=== PATIENT | male | born 1945 | race Caucasian/White ===

== ENCOUNTER 2018-02-22 13:37 | Inpatient (IN) | payer MEDICARE ==
[2018-02-22] VITALS (8 sets, daily range): BP systolic 102–136; BP diastolic 67–78
[~2018-02-22] VITALS: Ht 172.7 cm; Wt 85.0 kg
[~2018-02-22 13:37] MED LIST: ASPIRIN81 M2 PO; HYDROCODON-ACE1 EAC1 PO; LEVOTHYROXIN0.088 MG PO; LEVOTHYROXINE0.05 MG PO; LISINOPRIL20 MG PO; NIACIN 500 MG500 M1 PO; NORVASC10 MG PO; PRAVACHOL20 MG PO; PRINZIDE 20-251 EACH PO; SIMVASTATIN40 MG PO
[2018-02-22] MEDS ORDERED: ALLOPURINOL 10100 M1 PO (13:45)
[2018-02-22] MEDS ORDERED: ZOCOR20 MG PO (13:45)
[2018-02-22 13:53] LABS: ABSOLUTE EOSINOPHILS 0.1 thou/uL (0.0-0.7); ABSOLUTE LYMPHOCYTES 2.5 thou/uL (0.8-5.3); ABSOLUTE MONOCYTES 0.4 thou/uL (0.0-1.2); ABSOLUTE NEUTROPHILS 3.9 thou/uL (1.6-8.1); BASOPHILS 0.1 %; EOSINOPHILS 1.8 %; HEMATOCRIT 45.7 % (42.0-52.0); HEMOGLOBIN 15.2 gm/dL (14.0-18.0); LYMPHOCYTES 35.8 %; MCH 30.3 pg (26.0-34.0); MCHC 33.2 g/dL (28.0-37.0); MCV 91.3 fL (80.0-100.0); MONOCYTES 5.8 %; MPV 7.3 fl. (7.2-11.1); NUCLEATED RBCS 0 /100WBC; PLATELET COUNT* 215 thou/uL (150-400); POLYS 56.5 %; RDW-CV 14.2 % (10.5-14.5)
[2018-02-22 14:04] LABS: APTT 36.5 Seconds (25.0-31.3); PROTIME 10.2 Seconds (9.20-11.50)
[2018-02-22 14:06] LABS: ANION GAP 6 mmol/L (7-16); BUN 23 mg/dL (7-18); CALCIUM 8.8 mg/dL (8.5-10.1); CHLORIDE 101 mmol/L (98-107); CO2 28 mmol/L (21-32); CREATININE 1.2 mg/dL (0.6-1.3); GLUCOSE 158 mg/dL (70-99); POTASSIUM 3.6 mmol/L (3.5-5.1); SODIUM 135 mmol/L (136-145)
[2018-02-22 14:22] LABS: ALBUMIN 4.3 g/dL (3.4-5.0); ALKALINE PHOSPHATASE 74 U/L (46-116); CK-MB MASS 0.5 ng/mL (<0.5-3.6); LIPASE 117 U/L (73-393); MAGNESIUM 2.1 mg/dL (1.8-2.4); NT-PRO BRAIN NAT PEPTIDE 29 pg/mL (<300); SGOT 14 U/L (15-37); SGPT 22 U/L (30-65); TOTAL BILIRUBIN 0.4 mg/dL (<0.1-1.0); TOTAL PROTEIN 7.8 g/dL (6.4-8.2); TROPONIN-I LEVEL <0.06 ng/mL (<0.06)
--- NOTE | 2018-02-22 16:25 | EKG ---
[place] [address] ELECTROCARDIOGRAM REPORT Name: LLUVIA RUEDA Room: [place] [address] ADM IN [facility]#: [id number] Admission: 02/22/18 Attend Phys: Yony Zacarias MD, F Discharge: Date of : 47 Report #: [id number] THIS REPORT FOR: //name// [facility] ED Test Date: 2018-02-22 Test Time: 13:42:08 Pat Name: LLUVIA RUEDA Department: Room: Gender: Emergency Manager: : 1945 Requested By: Bon Bates Order Number: [id number] MD: Yony Zacarias Measurements Intervals [place] Rate: 77 P: -5 NE: 139 QRS: 20 QRSD: 101 T: 55 QT: 383 QTc: 434 Interpretive Statements Sinus rhythm Probable left atrial enlargement Minimal ST depression, lateral leads Compared to ECG 05/26/2014 14:59:02 ST (T wave) deviation now present Electronically Signed On 02-22-2018 16:24:53 PATTERN STORAGE CLERK by Yony Zacarias [email or web address] <ELECTRONICALLY SIGNED> By: Yony Zacarias MD, [facility] 02/22/18 1624 1342 1342 Yony Zacarias MD, [facility] /EPI
--- NOTE | 2018-02-22 17:52 | CARD ---
[facility] [address] [place] [address] CARDIAC CATH REPORT Name: LLUVIA RUEDA Room: [address] IN .R.#: [id number] Admission: 02/22/18 Attend Phys: Yony Zacarias MD, F Discharge: Date of : 47 Report #: [id number] THIS REPORT FOR: //name// APPROVED REPORT Study performed: 02/22/2018 14:09:09 Patient Details Patient Status: In-Patient Room #: 201 The patient is a 72 year-old male Event Personnel Yony Zacarias Project Consultant, Ashely Cristina RN Cone Sewer, Kyle Burgess (R) Monitor, Stephanie WalkerIS Scrub Procedures Performed Left Heart Cath w/or w/o Coronaries Indication Abnormal ECG, Unstable angina Risk Factors Arterial Hypertension, Hypercholesterolemia Admission/Lab Medications/Medications given during procedure Heparin Unfract. Procedure Narrative The patient was brought electively to the Cardiac Catheterization Laboratory and was prepped and draped in a sterile manner. The right wrist was infiltrated with 1% Lidocaine subcutaneous anesthesia. A Slender Glidesheath sheath was inserted into the right radial artery. Coronary angiography was performed using coronary diagnostic catheters. The right coronary system was accessed and visualized with a Diagnostic JR4 catheter. The left coronary system was accessed and visualized with a Diagnostic JL4 catheter. The left ventricle was accessed and visualized with a Diagnostic Angled Pigtail catheter. Left ventricular/Aortic Valve gradient assessed via catheter pullback. Left ventriculogram was performed in MCKEON projection. Closure device was deployed with a 6 Fr Vasc-Band Reg 24cm. The patient tolerated the procedure well and there were no complications associated with the procedure. There was no hematoma[place] [address] CARDIAC CATH REPORT Name: MOHITLLUVIA DAYANARA Room: [address] IN [facility]#: [id number] Admission: 02/22/18 Attend Phys: Yony Zacarias MD, F Discharge: Date of : 47 Report #: [id number] Sedation start time: 14:56 Case end Time: 15:21 Fentanyl 25 mcg Versed 2 mg Fluoro Time: 2.3 minutes Dose: DAP 81710 cGycm2 597 mGy Contrast Type and Amount: Visipaque 45 ml Coronary Angiography The patient's coronary anatomy is right dominant. Diagnostic Cath Left Main 90% proximal stenosis LAD 60% proximal stenosis Circumflex 50% mid stenosis Right Coronary 70% ostial stenosis, 40% mid stenosis Left Ventriculography The left ventricle is normal in size with normal contractility. The left ventricular ejection fraction is estimated to be 60-65%. Left ventricular wall motion abnormalities are not present. There is no mitral insufficiency. Hemodynamics The aortic pressure is 101/64 mmHg with a mean of 81 mmHg. The left ventricular pressure is 109/12 mmHg with a mean of mmHg. The left ventricular end diastolic pressure is 12 mmHg. There was no gradient across the aortic valve upon pullback. Pullback from the left ventricle to the aorta revealed no gradient across the aortic valve. Conclusion 1. 90% left main stenosis and 70% stenosis of the rca ostium 2. normal LV function Recommendations CABG <ELECTRONICALLY SIGNED> By: Yony Zacarias MD, FACC 02/22/18 175 50 1751Djayce Zacarias MD, FACC /INF
--- NOTE | 2018-02-22 18:20 | NUR ---
ADMISSION ASSESSMENT COMPLETED REFER TO COMPUTER CHARTING. SHEET METAL SMITH TRACKING SR. PATIENT RESTING IN BED REPORTING NO PAIN, NAUSEA OR SHORTNESS OF BREATH. BED IN LOW AND LOCKED POSITION. CALL LIGHT WITHIN REACH. FAMILY AT BEDSIDE. IV FLUIDS INFUSING. RADSTAT TO RIGHT WRIST. CALL LIGHT WITHIN REACH. WILL CONTINUE TO MONITOR.
[2018-02-23] VITALS: BP 94/57
--- NOTE | 2018-02-23 02:25 | NUR ---
ASSUMED CARE OF PATIENT AT 1900 VSS, AFEBRILE. READSTAT REMOVED AT APPROXIMATELY 2029. NO FURTHER BRUISING OR HEMATOMA NOTED. DENIES PAIN, SOA OR N/V. EDUCATION GIVEN REGARDING PLANNED BIPASS. PATIENT TO GO TO [facility] TOMORROW FOR SURGERY ON THURSDAY. AT BEDSIDE. NO OTHER CONCERNS AT THIS TIME. WILL CONTINUE TO MONITOR.
[2018-02-23 04:00] VITALS: BP 109/69
[2018-02-23 05:52] LABS: CHOLESTEROL 137 mg/dL (<200); HDL CHOLESTEROL 25 mg/dL (>40); TC:HDL 5.5 Ratio (Not establshd); TRIGLYCERIDE 435 mg/dL (<150); TROPONIN-I LEVEL 0.08 ng/mL (<0.06); VLDL 87 mg/dL (<40)
[2018-02-23 05:55] LABS: SERUM ASSESSMENT Moderate Lipemia
[2018-02-23 08:00] VITALS: BP 111/70
--- NOTE | 2018-02-23 09:42 | NUR ---
ASSUMED CARE OF PT AT 0730. PT SITTING UP IN THE CHAIR WAITING FOR BREAKFAST. PT AT BEDSIDE AND UPDATED ON CURRENT PLAN OF CARE. PT A&0X4, COMPLAINS OF PAIN TO BACK- STATES HE TAKES HYDROCODONE AT HOME. REDNESS RASH NOTED TO PT BACK. PT STATES IT IS FROM TAKING CODEINE. DR LOUIE NOTIFIED. ORDERS RECEIVED FOR BENADRYL AND TO RESTART HYDROCODONE. REFER TO EMAR. PT TRACING SR ON THE SAP SENIOR DEVELOPER. PT PLAN IS TO TRANSFER TO [facility] TODAY AFTER ECHO AND US CAROTIDS. PT TO HAVE TRIPLE BYPASS ON THURSDAY. RIGHT WRIST ACCESS YESTERDAY- C/D/I WITH NO HEMATOMA NOTED. PT ON RA SAT UPPER 90'S. DENIES ANY SHORTNESS OF BREATH. PT UP AD ARGELIA IN ROOM. AM ASSESSMENT CHARTED. MEDICATIONS PER JUN. PT REPOSITIONS SELF. HOURLY ROUNDING OBSERVED. BED IN LOW POSITION. CALL LIGHT WITHIN REACH. WILL CONTINUE PLAN OF CARE.
--- NOTE | 2018-02-23 10:20 | NUR ---
Consult received for Pt to transfer to [facility] for triple bypass surgery on . CM spoke with Montse with the transfer center, she has already received info from the [facility] Production Utility Worker, they are waiting bed availablity later today. Pt out of the room at testing, Pt to have an Echo and carotid US prior to dc. AMADO initiated the EMTALA form and ambulance form, updated nurse. Montse to contact CM once bed becomes available. Following.
[2018-02-23 11:58] VITALS: BP 108/61
--- NOTE | 2018-02-23 14:09 | 2DMMODE ---
[place] [address] 2 D/M-MODE ECHOCARDIOGRAM Name: MOHITLLUVIA DAYANARA Room: [address] IN [facility]#: [id number] Admission: 02/22/18 Attend Phys: Yony Zacarias MD Discharge: Date of : 47 Date of Service: 02/23/18 1409 Report #: [id number] THIS REPORT FOR: //name// APPROVED REPORT Study performed: 02/23/2018 10:59:23 EXAM: Comprehensive 2D, Doppler, and color-flow Echocardiogram Patient Location: In-Patient Room #: 222 Status: routine BSA: 2.02 HR: 56 bpm BP: 111/70 mmHg Rhythm: NSR Other Information Study Quality: Good Indications Abnormal ECG 2D Dimensions IVSd: 11.72 (7-11mm) LVOT Diam: 19.54 (18-24mm) LVDd: 38.16 mm PWd: 10.37 (7-11mm) Ascending Ao: 37.84 (22-36mm) LVDs: 20.72 (25-40mm) Aortic Root: 35.96 mm Volumes Left Atrial Volume (Systole) LA ESV Index: 19.60 mL/m2 Aortic Valve AoV Peak Jeremy.: 1.48 m/s AO Peak Gr.: 8.75 mmHg LVOT Max P.82 mmHg AO Mean Gr.: 4.80 mmHg LVOT Mean P.09 mmHg LVOT Max V: 1.31 m/s AO V2 VTI: 26.47 cm LVOT Mean V: 0.79 m/s KRISTA (VTI): 3.06 cm2 LVOT V1 VTI: 27.01 cm Mitral Valve E/A Ratio: 0.85 MV Decel. Time: 268.41 ms MV E Max Jeremy.: 0.62 m/[place] [address] 2 D/M-MODE ECHOCARDIOGRAM Name: MOHITLLUVIASHOLA NICHOLE Room: [address] IN .R.#: [id number] Admission: 02/22/18 Attend Phys: Yony Zacarias MD Discharge: Date of : 47 Date of Service: 02/23/18 1409 Report #: [id number] MV PHT: 77.84 ms MVA (PHT): 2.83 cm2 TDI E/Lateral E': 10.33 E/Medial E': 8.86 Medial E' Jeremy.: 0.07 m/s Lateral E' Jeremy.: 0.06 m/s Pulmonary Valve PV Peak Jeremy.: 0.83 m/s PV Peak Gr.: 2.76 mmHg Tricuspid Valve RAP Estimate: 5.00 mmHg TR Peak Gr.: 23.66 mmHg RVSP: 28.00 mmHg PA Pressure: 28.00 mmHg Left Ventricle The left ventricle is normal size. There is normal LV segmental wall motion. Mild concentric left ventricular hypertrophy. Left ventricular systolic function is normal. LVEF is 65-70%. Grade I - abnormal relaxation pattern. Right Ventricle The right ventricle is normal size. The right ventricular systolic function is normal. Atria The left atrium size is normal. The right atrium size is normal. Aortic Valve Mild aortic valve sclerosis. No aortic regurgitation is present. There is no aortic valvular stenosis. Mitral Valve The mitral valve is normal in structure. There is no mitral valve regurgitation noted. No evidence of mitral valve stenosis. Tricuspid Valve The tricuspid valve is normal in structure. Trace tricuspid regurgitation. No pulmonary hypertension. Pulmonic Valve The pulmonary valve is normal in structure. Trace [place] [address] 2 D/M-MODE ECHOCARDIOGRAM Name: LLUVIA RUEDA DAYANARA Room: [address] IN [facility]#: [id number] Admission: 02/22/18 Attend Phys: Yony Zacarias MD Discharge: Date of : 47 Date of Service: 02/23/18 1409 Report #: [id number] Great Vessels The aortic root is normal in size. IVC is normal in size and collapses >50% with inspiration. Pericardium There is no pericardial effusion. <Conclusion> The left ventricle is normal size. Mild concentric left ventricular hypertrophy. Left ventricular systolic function is normal. LVEF is 65-70%. Grade I - abnormal relaxation pattern. Mild aortic valve sclerosis. Trace tricuspid regurgitation. No pulmonary hypertension. IVC is normal in size and collapses >50% with inspiration. <ELECTRONICALLY SIGNED> By: Noe Kang MD, FACC 02/23/18 1409 140 140 Noe Kang MD, FACC /INF
--- NOTE | 2018-02-23 14:33 | EKG ---
[place] [address] ELECTROCARDIOGRAM REPORT Name: LLUVIA RUEDA Room: [address] ADM IN .R.#: [id number] Admission: 02/22/18 Attend Phys: Yony Zacarias MD, F Discharge: Date of : 47 Report #: [id number] THIS REPORT FOR: //name// [facility] Test Date: 2018-02-23 Test Time: 08:08:48 Pat Name: LLUVIA RUEDA Department: Room: [facility] Gender: M Service Specialist: : 1945 Requested By: Yony Zacarias Order Number: [id number] Reading MD: Noe Kang Measurements Intervals [place] Rate: 62 P: 6 VT: 148 QRS: 35 QRSD: 99 T: 61 QT: 423 QTc: 430 Interpretive Statements Sinus rhythm Compared to ECG 02/22/2018 13:42:08 ST (T wave) deviation no longer present Electronically Signed On 02-23-2018 14:33:27 DERRICK BARGE OPERATOR by Noe Kang [email or web address] <ELECTRONICALLY SIGNED> By: Noe Kang MD, [facility] 02/23/18 1433 7 7 Noe Kang MD, [facility] /EPI
--- NOTE | 2018-02-23 15:03 | H ---
[address] [address] HISTORY AND PHYSICAL Name: LLUVIA RUEDA Room: [address] IN M.R.#: [id number] Admission: 02/22/18 Attend Phys: Yony Zacarias MD, F Discharge: Date of : 47 Report #: [id number] THIS REPORT FOR: //name// CC: Bon Avalos MD DATE OF SERVICE: 02/22/2018 CARDIOLOGY CONSULTATION HISTORY OF PRESENT ILLNESS: The patient is a 72-year-old white male who I was asked to see in the Emergency Room after he complained of chest pain. The patient has no previous history of heart disease. He has had no previous cardiac evaluation. He notes that for the past few weeks when he exerts himself, he developed some pain on the left side of the chest, radiates into his left arm. It is not related to meals or bending. He has had no trauma to his chest. When he develops the discomfort, there is no associated shortness of breath, diaphoresis, nausea. If he stops exercising, the pain resolves. He is having the discomfort almost every day. He finally came to the Emergency Room today and I was asked to see him for further evaluation and treatment. He denies any fever, cough, blood in stool. He has had no rash on his chest. Denies exertional dyspnea, palpitations or syncope. 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 MEDICATIONS: Include Zocor, lisinopril, allopurinol, Synthroid, oxycodone for chronic left sciatica. He takes an aspirin a day. ALLERGIES: He has no known drug allergies. FAMILY HISTORY: Two brothers had heart attack. SOCIAL HISTORY: He is . He and his live in [place], [place]. He is retired, working for the [employer]. He quit smoking 20 years ago. No alcohol abuse. REVIEW OF SYSTEMS: He has had no history of stroke, asthma, peptic ulcer disease, liver disease, kidney disease, chronic skin condition, cancer or psychiatric illness. PHYSICAL EXAMINATION: GENERAL: Revealed an elderly male who appeared in no distress. VITAL SIGNS: He had a blood pressure of 130/70, pulse 70, [place] [address] HISTORY AND PHYSICAL Name: LLUVIA RUEDA Room: [address]#: [id number] Admission: 02/22/18 Attend Phys: Yony Zacarias MD, F Discharge: Date of : 47 Report #: [id number] HEENT: He is anicteric. Conjunctivae pink. Mucous membranes moist. NECK: Veins nondistended. No carotid bruits. Neck supple. CHEST: Clear to auscultation. CARDIOVASCULAR: Regular rate and rhythm without murmur. ABDOMEN: Soft, nontender. EXTREMITIES: Had no edema. Posterior tibial pulse 2+ bilaterally. SKIN: Warm, dry. NEUROLOGIC: Nonfocal. LYMPH: No adenopathy. MUSCULOSKELETAL: No joint effusions. PSYCHIATRIC: Mood is appropriate. ECG showed a sinus rhythm. He had ST segment depression that was flat in lead 1, V5 and V6. His workup in the Emergency Room, he had a portable chest x-ray that showed normal heart size, clear lung johnson. LABORATORY DATA: He had lab work done, sodium 135, potassium 3.6, creatinine 1.2, glucose is 158. Troponin is pending. White blood cell count 7.0, hemoglobin 15.2. IMPRESSION AND RECOMMENDATIONS: 1. Unstable angina. Recommend cardiac catheterization. 2. Hypertension. The patient is on an KAREY inhibitor. 3. Hyperlipidemia. The patient is on a statin drug. 4. Sciatica. <ELECTRONICALLY SIGNED> By: Yony Zacarias MD, FACC 02/23/18 1503 1419 1448Daalanis Zacarias MD, FACC /nt
--- NOTE | 2018-02-23 15:06 | NUR ---
TRANSFER ORDERS RECEIVED FOR PT TO TRANSFER TO [facility] FOR TRIPLE BYPASS ON THURSDAY. REPORT CALLED TO DOM NGO. PT TO TRANSFER TO ROOM 209 AT [facility]. DIRECTOR OF BUSINESS SERVICES REMOVED. PT HAD US CAROTIDS AND ECHO PRIOR TO TRANSFER. REFER TO RESULTS. PT TRANSFERRED TO [facility] VIA EMS, REPORT GIVEN.
--- NOTE | 2018-02-25 17:17 | D ---
[address] [address] DISCHARGE SUMMARY Name: MOHITLLUVIA DAYANARA Room: [address] IN M.R.#: [id number] Admission: 02/22/18 Attend Phys: Yony Zacarias MD, F Discharge: 02/23/18 Date of : 47 Report #: [id number] THIS REPORT FOR: //name// CC: Yony Avalos MD DATE OF SERVICE: 02/23/2018 DISCHARGE DIAGNOSES: 1. Unstable angina. 2. Coronary artery disease. 3. Hypertension. 4. Hyperlipidemia. CONSULTANTS: None. PROCEDURES: Left heart catheterization. HISTORY OF PRESENT ILLNESS: The patient is a 72-year-old white male who was admitted to [facility] with chest pain. The patient had no previous history of heart disease. Recently, however, he noticed that when he exerts himself he developed pain on the left side of his chest that would radiate into his left arm. It is not related to meals or bending. He had no trauma to his chest. There was no associated shortness of breath, diaphoresis, nausea. He had had no bleeding. The pain was resolved with rest. Recently, he was having exertional discomfort almost every day. The weekend prior to admission he was deer hunting and every time he tried to walk in the johnson he developed chest tightness and had to stop walking. So he finally came to the Emergency Room on the morning of 02/22/2018. I was asked to see him for further evaluation and treatment. PAST MEDICAL HISTORY: Significant for a surgery on his hand, shoulder surgery, hypertension, hyperlipidemia, gout, hypothyroidism. MEDICATIONS: On admission included Zocor, lisinopril, allopurinol, Synthroid, oxycodone for chronic left hip pain, aspirin a day. ALLERGIES: He had no known drug allergies. PHYSICAL EXAMINATION: VITAL SIGNS: Blood pressure 130/70, pulse 60. CHEST: Clear to auscultation. CARDIAC: Regular rate and rhythm. ABDOMEN: Soft. EXTREMITIES: [place] [address] DISCHARGE SUMMARY Name: MOHITLLUVIASHOLA NICHOLE Room: [address]#: [id number] Admission: 02/22/18 Attend Phys: Yony Zacarias MD, F Discharge: 02/23/18 Date of : 47 Report #: [id number] DIAGNOSTIC DATA: ECG, sinus rhythm, ST segment depression in leads 1, V5 and V6. Chest x-ray, normal heart size, clear lung johnson. LABORATORY DATA: Sodium 135, creatinine 1.2, hemoglobin 15.2. HOSPITAL COURSE: The patient was felt to be having unstable angina. I took him to the cardiac catheterization lab on the first hospital day. I performed cardiac catheterization from the right radial artery. Results showed normal left ventricular function. There appeared to be a 90% narrowing of the left main artery and a 60% stenosis of the proximal LAD. The circumflex had a mid 50% stenosis. There appeared to be a 70% eccentric ostial narrowing of the right coronary artery. The results were discussed with the patient and it was felt he had severe 3-vessel coronary artery disease including left main stenosis. I recommended that he be considered for coronary artery bypass surgery. Vasc Band was placed over the right radial artery. The patient had no further chest pain, arrhythmias or heart failure. He had no bleeding problems. The patient was started on a beta king. The following day he underwent a carotid Doppler study that showed minimal plaque formation. There was no significant rise in troponin. The patient was seen in consultation by cardiac rehabilitation. He did undergo an echocardiogram, although the results are pending at this time. I made a phone consult to Dr. Bauer at [facility] to consider coronary artery bypass surgery. The decision at this time was to transfer the patient by ambulance to [facility] for consideration of coronary artery bypass surgery. At the time of discharge, the patient had no significant complaints. His vital signs, he had blood pressure of 110/70, pulse 60s, afebrile. Additional lab work during his hospitalization included a cholesterol of 137, triglyceride 435, HDL 25, LDL could not be calculated. His TSH was 6.2. Followup troponin was 0.08. The patient was receiving Lovenox 1 mg/kg subcutaneously every 12 hours prior to transfer. At the time of transfer, the patient had no significant complaints. <ELECTRONICALLY SIGNED> By: Yony Zacarias MD, [facility] 02/25/18 1717 1412 1650Daalanis Zacarias MD, FACC /nt
[2018-03-03] MEDS ORDERED: LOPRESSOR25 PO (08:12)
[2018-03-03] MEDS ORDERED: PACERONE 200 M200 M1 PO (08:12)
[2018-03-03] MEDS ORDERED: ASA5UEC PO (08:12)
[2018-03-03] MEDS ORDERED: HYDROCODON-ACE1 EAC7 PO (08:12)
== END 2018-02-23 15:12 | disposition short-term general hospital (02) | DRG 287 ==
LOC: M.CL 13:37 → M.ERS 13:37 → M.2W 15:06 → M.TBA-CV 15:06 → M.2W 15:06
PROVIDERS: Family Medicine; ADMIT Internal Medicine Cardiovascular Disease
PROC: B2111ZZ Fluoroscopy of Multiple Coronary Arteries using Low Osmolar Contrast (ICD-10-PCS; principal; 2018-02-22)
PROC: B2151ZZ Fluoroscopy of Left Heart using Low Osmolar Contrast (ICD-10-PCS; principal; 2018-02-22)
PROC: 4A023N7 Measurement of Cardiac Sampling and Pressure, Left Heart, Percutaneous Approach (ICD-10-PCS; principal; 2018-02-22)
DX: I25.110 Atherosclerotic heart disease of native coronary artery with unstable angina pectoris (principal); I50.32 Chronic diastolic (congestive) heart failure; I11.0 Hypertensive heart disease with heart failure; E78.5 Hyperlipidemia, unspecified; E78.00 Pure hypercholesterolemia, unspecified; M10.9 Gout, unspecified; E03.9 Hypothyroidism, unspecified; M54.30 Sciatica, unspecified side; Z88.6 Allergy status to analgesic agent; Z79.2 Long term (current) use of antibiotics; Z79.82 Long term (current) use of aspirin; Z79.899 Other long term (current) drug therapy; Z82.49 Family history of ischemic heart disease and other diseases of the circulatory system; Z87.891 Personal history of nicotine dependence

== ENCOUNTER 2018-11-14 21:08 | Emergency (ER) | payer MEDICARE ==
[~2018-11-14] VITALS: Ht 162.6 cm; Wt 86.2 kg
[~2018-11-14 21:08] MED LIST changes: +ALLOPURINOL 10100 M1 PO; +ASA5UEC PO; +HYDROCODON-ACE1 EAC7 PO; +LOPRESSOR25 PO; +PACERONE 200 M200 M1 PO; +ZOCOR20 MG PO
[2018-11-14 21:31] LABS: URINE BILIRUBIN NEGATIVE (Negative); URINE BLOOD NEGATIVE (Negative); URINE CLARITY CLEAR; URINE COLOR YELLOW; URINE GLUCOSE-RANDOM NEGATIVE (Negative); URINE KETONES NEGATIVE (Negative); URINE LEUKOCYTES NEGATIVE (Negative); URINE NITRITE NEGATIVE (Negative); URINE PROTEIN NEGATIVE (Negative); URINE UROBILINOGEN 0.2 E.U./dl (0.2-1.0)
[2018-11-14 21:55] LABS: ABSOLUTE BASOPHILS 0.1 thou/uL (0.0-0.2); ABSOLUTE LYMPHOCYTES 1.2 thou/uL (0.8-5.3); ABSOLUTE NEUTROPHILS 10.7 thou/uL (1.6-8.1); BASOPHILS 0.6 %; EOSINOPHILS 0.1 %; HEMOGLOBIN 14.7 gm/dL (14.0-18.0); LYMPHOCYTES 9.6 %; MCH 30.3 pg (26.0-34.0); MCHC 33.4 g/dL (28.0-37.0); MCV 90.5 fL (80.0-100.0); MONOCYTES 7.7 %; MPV 7.4 fl. (7.2-11.1); NUCLEATED RBCS 0 /100WBC; PLATELET COUNT* 200 thou/uL (150-400); RBC 4.86 mil/uL (4.50-6.00); RDW-CV 14.7 % (10.5-14.5)
[2018-11-14 22:02] LABS: CALCIUM 9.2 mg/dL (8.5-10.1); CREATININE 1.4 mg/dL (0.6-1.3); POTASSIUM 4.1 mmol/L (3.5-5.1)
[2018-11-14 22:07] LABS: ALBUMIN 4.3 g/dL (3.4-5.0); TOTAL BILIRUBIN 0.8 mg/dL (<0.1-1.0)
[2018-11-15] MEDS ORDERED: ZOFRAN ODT4 MG PO (00:05)
[2018-11-15] MEDS ORDERED: AUGMENTIN 875-1 EACH PO (00:05)
[2018-11-15 00:33] VITALS: BP 109/64
== END 2018-11-15 00:36 | disposition home or self-care (01) ==
LOC: M.ERS 21:08
PROVIDERS: Emergency Medicine; Physician Assistant
DX: J18.9 Pneumonia, unspecified organism (principal); I10 Essential (primary) hypertension; E03.9 Hypothyroidism, unspecified; E78.5 Hyperlipidemia, unspecified; Z88.5 Allergy status to narcotic agent

== ENCOUNTER → 2019-03-10 | Outpatient (CLI) | payer MEDICARE ==
[~2019-03-10] MED LIST changes: +AUGMENTIN 875-1 EACH PO; +ZOFRAN ODT4 MG PO
== END ==
LOC: M.RAD 11:41
DX: M25.462 Effusion, left knee (principal)

== ENCOUNTER → 2020-02-01 | Outpatient (CLI) | payer MEDICARE | LOC: M.ULTRA 13:58 | PROVIDERS: ATTEND Nurse Practitioner Family | DX: R22.1 Localized swelling, mass and lump, neck (principal) ==